=== PATIENT | male | born 1995 | race Asian ===

== ENCOUNTER 2024-07-15 15:52 | Inpatient (IN) | payer OTHER, SELFPAY ==
--- NOTE | 2024-07-15 | ECG_ITS ---
Test Reason : BASELINE Blood Pressure : */* mmHG Vent. Rate : 89 BPM Atrial Rate : 89 BPM P-R Int : 172 ms QRS Dur : 96 ms QT Int : 346 ms P-R-T Axes : 81 79 41 degrees QTcB Int : 420 ms Normal sinus rhythm Nonspecific ST and T wave abnormality Abnormal ECG No previous ECGs available Referred By: Everette Taveras Electronically Signed By: SONIA SINCLAIR
--- NOTE | ~2024-07-15 | CT_ITS ---
CLINICAL HISTORY: Subcutaneous air post injury Exam: CT of the left knee with intravenous contrast. Comparison: X-rays of the left knee from 07/15/2024. Findings: Redemonstration of the abnormal soft tissue gas predominately involving medial soft tissues, including proximal to the knee in the deep to multifocal hamstring musculature. Mild extravasation of the contrast is likely venous with contrast anterior to the upper portion of the popliteal vein. No defined arterial injury or definite arterial extravasation of the contrast. Fluid in the stranding is noted medial and posterior to the knee predominately proximal. Additional cellulitis centered inferiorly superficial to gastroc musculature. No displaced fracture. No dislocation. Small effusion present. Impression: 1. No acute fracture or dislocation. 2. Abnormal fluid and soft tissue gas is predominately medial, proximal, and dorsal to the knee. 3. Mild venous extravasation of the contrast. No arterial injury defined by [address] This document has been electronically signed by: Kavon Stein MD on 07/16/2024 01:50:44
--- NOTE | ~2024-07-15 | XR_ITS ---
EXAMINATION: XR KNEE, LEFT CLINICAL INFORMATION: wound, knee pain COMPARISON: None available. TECHNIQUE: Four views of the left knee. FINDINGS: No fracture, dislocation, or suspicious bone lesion. Normal alignment. Preserved joint spaces. No evidence of joint effusion. There are numerous foci of subcutaneous gas seen in the distal thigh both medially and posteriorly. No radiopaque foreign body evident. XR/XR knee LT 3V IMPRESSION: 1. No acute bony abnormalities. 2. Numerous foci of subcutaneous gas seen in the distal thigh both medially and posteriorly. Electronically signed by: Rajan Umana MD 07/15/2024 04:28 PM EDT
[2024-07-15 15:55] VITALS: BP 135/87; PULSE 90; RESP 16; TEMP 36.9; O2SAT 98; BMI 22.8
--- NOTE | 2024-07-15 16:00 | ED.LOWEXIN ---
HPI - Extremity Injury (Lower) General Chief Complaint: Extremity Injury, Lower Stated Complaint: Sent from primary for a CT scan Time Seen by Provider: 07/15/24 23:14 Source: patient Mode of arrival: ambulatory Limitations: no limitations History of Present Illness ED Provider: HPI Narrative: Patient apparently had a skiing injury 3 days ago tree branch went into the left medial aspect of the lower thigh patient's today noticed redness and pain x-ray was done which showed air under the skin spreading to the lower thigh patient denied any fever chills able to ambulate seen his PCP earlier today Related Data Previous Rx's ?Medication ?Instructions ?Recorded clindamycin HCl 300 mg capsule 300 mg PO Q6H #40 caps 07/16/24 Allergies Allergy/AdvReac Type Severity Reaction Status Date / Time No Known Allergies Allergy Verified 07/15/24 16:03 Review of Systems Review of Systems: Yes all other systems are reviewed and are negative [facility] Social History Social History Advance Directives: No Advance Directives Information Provided: No Do you have a plan to hurt others: No Plan Physical Exam Vital Signs: Vital Signs: Last Vital Signs Temp 98.0 F 07/16/24 05:38 Pulse 88 07/16/24 05:38 Resp 16 07/16/24 05:38 BP 117/78 07/16/24 05:38 Pulse Ox 99 07/16/24 05:38 O2 Del Method Room Air 07/16/24 05:38 BMI result Body Mass Index 22.8 Appearance: Alert. Oriented X3. No acute distress. Eyes: PERRLA, No Nystagmus ENT: Pharynx normal. Oral Mucosa moist Neck: Normal inspection. Neck supple. CVS: Normal heart rate and rhythm. Pulses normal. Respiratory: No respiratory distress. Equal air entry bilateral, no wheezing/rales/rhonchi Abdomen: Soft and nontender. Bowel sounds are present, no mass palpable, no CVA tenderness Skin: Skin warm and dry. Normal skin color. Normal skin turgor. Extremities: No lower extremity edema. No calf tenderness small wound on the medial aspect of the left knee with surrounding erythema no crepitation , knee joint with good range of movement no effusion Neuro: Oriented X 3. No motor deficit. No sensory deficit.No cerebellar signs , cranial nerves II-XII intact Course Course Course Narrative: This is an RME: Additional HPI, ROS, PE not included below will be deferred to primary provider. RME assessment and note performed by: Cheyenne Patricia PA-C This is a [id number]-male who presents to the ER with a complaint of left knee pain. Patient reports that he had a ski accident 3 days ago where a branch went into his left knee and caused him to have a wound. He went and had an x-ray performed which you can see the results below. Wound to left medial knee with mild surrounding erythema and warmth. Plan: Labs, x-ray, further ER evaluation needed. Medications Administered Generic Name Dose Route Start Last Admin Trade Name Freq PRN Reason Stop Dose Admin Clindamycin Phosphate 600 mg in 50 mls @ 100 mls/hr 07/16/24 03:00 07/16/24 04:09 Cleocin IV Infused Q6H ROMULO Infusion Discontinued Medications Generic Name Dose Route Start Last Admin Trade Name Freq PRN Reason Stop Dose Admin Bacitracin 1 appl 07/16/24 02:22 07/16/24 02:51 Bacitracin Oint 0.9 Gm Packet TOPICAL 07/16/24 02:23 1 appl ONCE ONE Administration Protocol Diphtheria/Tetanus/Acell Pertussis 0.5 ml 07/15/24 23:49 07/15/24 23:57 Diphth,Pertus(Acell),Tet Adult 0.5 Ml Syringe IM 07/15/24 23:50 0.5 ml .ONCE ONE Administration Piperacillin Sod/Tazobactam 50 mls @ 100 mls/hr 07/15/24 23:28 07/16/24 02:01 Sod 3.375 gm/ Sodium Chloride IV 07/15/24 23:57 Infused ONCE ONE Infusion Vancomycin HCl 1,500 mg/ 500 mls @ 333.333 mls/hr 07/16/24 03:15 07/16/24 04:14 Sodium Chloride IV 07/16/24 04:44 333.33 mls/hr ONCE ONE Administration Iohexol 85 ml 07/16/24 00:51 07/16/24 00:52 Iohexol 350 Mg/Ml 100 Ml Infus..Btl IV 07/16/24 00:52 85 ml ONCE ONE Administration Medical Decision Making Medical Decision Making [facility] Narrative: Patient punctured wound from the branch of the tree on 07/12 to the left lower thigh with air in his soft tissue patient did not take any antibiotics or paid any attention to the wound today noticed redness swelling and pain in that area x-ray and CT scan showed air in his subcutaneous tissue no signs of necrotizing fasciitis at this time will admit patient for IV antibiotics for infected puncture wound Differential Diagnosis Differential Diagnoses: The differential diagnosis associated with the presentation includes Infected wound/necrotizing fasciitis/compartment syndrome Admission/Observation Consideration of admission/observation: Escalation of care including admission/observation considered Consult Healthcare Provider Management of the patient was discussed with: Hospitalist Lab Data [facility] Lab Attestation statement: I reviewed the patient's lab results. 07/16/24 04:58 07/16/24 04:58 Labs: Lab Results 07/15/24 07/15/24 Range/Units 16:30 16:31 WBC 7.3 (4.8-10.8) X10*3/uL RBC 4.94 (4.60-5.80) X10*6/uL Hgb 14.2 (14.0-18.0) g/dl Hct 42.5 (42.0-52.0) % MCV 86.0 (80.0-98.0) fL MCH 28.7 (27.0-33.0) pg MCHC 33.4 (31.0-36.0) g/dl RDW 14.2 (11.0-16.0) % Plt Count 219 (160-400) X10*3/uL MPV 9.8 (9.4-12.4) fL Immature Gran % (Auto) 0.1 (0.0-0.4) % Neut % (Auto) 66.6 (45-73) % Lymph % (Auto) 21.5 (20-40) % Kay % (Auto) 9.7 (2-11) % Eos % (Auto) 1.6 (0-4) % Baso % (Auto) 0.5 (0-2) % Lymph # (Auto) 1.6 (1.2-4.9) X10*3/uL Kay # (Auto) 0.7 (0.1-1.2) X10*3/uL Eos # (Auto) 0.1 (0.0-0.4) X10*3/uL Baso # (Auto) 0.0 (0.0-0.2) X10*3/uL Abs Immat Gran (auto) 0.01 (0.00-0.03) X10*3/uL Absolute Neuts (auto) 4.9 (2.0-8.3) x10*3/uL Absolute Nucleated RBC 0.000 (0.0-0.012) X10*3/uL Nucleated RBC % (auto) 0.0 (0.0-0.2) /100WBC Smear Tech's Comments VERIFIED ESR 23 H (0-15) MM/HR Sodium 141 (135-145) mmol/L Potassium 3.9 (3.3-5.1) mmol/L Chloride 108 (96-108) mmol/L Carbon Dioxide 27 (22-29) mmol/L Anion Gap 10 L (12-20) BUN 19 H (9-16) mg/dL Creatinine 0.99 (0.5-1.4) mg/dL Estim Creat Clear Calc 99.3 Estimated GFR > 60 Random Glucose 92 (60-115) mg/dL Calcium 9.1 (8.4-10.2) mg/dL Total Bilirubin 1.3 H (0.0-1.0) mg/dL Direct Bilirubin 0.4 (0.0-0.5) mg/dL AST 17 (5-37) U/L ALT 14 (0-40) U/L Alkaline Phosphatase 54 (39-117) U/L Total Creatine Kinase 204 H (38-174) U/L C-Reactive Protein 5.36 H (< or = 0.50) mg/dL Total Protein 7.6 (6.5-8.0) g/dL Albumin 4.3 (3.5-5.0) g/dL Independent Interpretation I performed an independent interpretation of an: CT Scan Radiology Impression Discussion of test interpretation with radiology: I have reviewed the radiologist's reading. Radiologist Impression: [address] [address] [address] Scan Report Signed with Vu Patient: Vero Gilliland MR#: [id number] : 1995 Acct:[id number] Age/Sex: 28 / M ADM Date: 07/15/24 Loc: HO.ED Attending Dr: Ordering Physician: John Clemons MD Date of Service: 07/16/24 Procedure(s): CT knee LT w IV con Accession Number(s): [id number] cc: Janelle Taveras MD; John Clemons MD~ Report Number: [id number]: Total DLP = 223.00 mGy-cm ADDENDUMThis document has been electronically signed by: Kavon Stein MD on 07/16/2024 01:50:44 ADDENDUM: This report was discussed with John Clemons on Jul 16, 2024 01:54:00 EDT. This document has been electronically signed by: Taya Brothers on 07/16/2024 01:54:56 Addendum Dictated By: Kavon Stein MD Addendum Signed By: <Electronically signed by Kavon Stein MD in OV> 07/16/24155 Addendum Cosigned By: DD/ /10/149 TD/TT: 07/16/2406/10/153 CLINICAL HISTORY: Subcutaneous air post injury Exam: CT of the left knee with intravenous contrast. Comparison: X-rays of the left knee from 07/15/2024. Findings: Redemonstration of the abnormal soft tissue gas predominately involving medial soft tissues, including proximal to the knee in the deep to multifocal hamstring musculature. Mild extravasation of the contrast is likely venous with contrast anterior to the upper portion of the popliteal vein. No defined arterial injury or definite arterial extravasation of the contrast. Fluid in the stranding is noted medial and posterior to the knee predominately proximal. Additional cellulitis centered inferiorly superficial to gastroc musculature. No displaced fracture. No dislocation. Small effusion present. Impression: 1. No acute fracture or dislocation. 2. Abnormal fluid and soft tissue gas is predominately medial, proximal, and dorsal to the knee. 3. Mild venous extravasation of the contrast. No arterial injury defined by [address] This document has been electronically signed by: Kavon Stein MD on 07/16/2024 01:50:44 Discharge Plan Discharge Clinical Impression: Cellulitis, Contusion Patient Disposition: Admitted As Inpatient
[2024-07-15 16:43] LABS: Basophils Percent Auto 0.5 % (0-2); Eosinophils Absolute Auto 0.1 X10*3/uL (0.0-0.4); Eosinophils Percent Auto 1.6 % (0-4); Hematocrit 42.5 % (42.0-52.0); Hemoglobin 14.2 g/dl (14.0-18.0); Imm Gran Abs Auto 0.01 X10*3/uL (0.00-0.03); Imm Gran Pct Auto 0.1 % (0.0-0.4); Lymphocytes Absolute Auto 1.6 X10*3/uL (1.2-4.9); Lymphocytes Percent Auto 21.5 % (20-40); MANUAL DIFF FLAG SCAN; Mean Corpuscular HGB Conc 33.4 g/dl (31.0-36.0); Mean Corpuscular Hemoglobin 28.7 pg (27.0-33.0); Mean Platelet Volume 9.8 fL (9.4-12.4); Monocytes Absolute Auto 0.7 X10*3/uL (0.1-1.2); Monocytes Percent Auto 9.7 % (2-11); Neutrophils Absolute Auto 4.9 x10*3/uL (2.0-8.3); Neutrophils Percent Auto 66.6 % (45-73); PLT CLUMP 1; Red Blood Count 4.94 X10*6/uL (4.60-5.80); Red Cell Distribution Width 14.2 % (11.0-16.0); SCAN SMEAR FLAG 1
[2024-07-15 17:05] LABS: Alanine Aminotransferase 14 U/L (0-40); Albumin Level 4.3 g/dL (3.5-5.0); Alkaline Phosphatase 54 U/L (39-117); Anion Gap 10 (12-20); Aspartate Amino Transferase 17 U/L (5-37); Bilirubin Direct 0.4 mg/dL (0.0-0.5); Bilirubin Total 1.3 mg/dL (0.0-1.0); Blood Urea Nitrogen 19 mg/dL (9-16); C Reactive Protein 5.36 mg/dL (< or = 0.50); Calcium 9.1 mg/dL (8.4-10.2); Carbon Dioxide 27 mmol/L (22-29); Chloride 108 mmol/L (96-108); Creatinine Clr Calc Pharmacy 99.3; Estimated Glomerular Filt Rate > 60; Glucose Random 92 mg/dL (60-115); Potassium 3.9 mmol/L (3.3-5.1); Sodium 141 mmol/L (135-145); Total Protein 7.6 g/dL (6.5-8.0)
[2024-07-15 17:21] LABS: Erythrocyte Sedimentation Rate 23 MM/HR (0-15)
[2024-07-15 17:37] LABS: Platelet Count 219 X10*3/uL (160-400); SLIDE REVIEW VERIFIED; White Blood Count 7.3 X10*3/uL (4.8-10.8)
[2024-07-15 22:00] VITALS: BP 112/74; PULSE 77; RESP 16; TEMP 36.7; O2SAT 98
--- NOTE | 2024-07-15 22:03 | PC.NURSE ---
Pt is a pleasant 28 y/o male who presents to the ED for evaluation of a wound on the medial side of his left know that occured approx 3 days ago while skiing. Pt reports being tripped and fell, suffering a penetrating injury caused by a tree branch. Denies any fever and pt denies fast growth/worsening of affected area since onset. Was seen at PCPs office earlier to day and had an x-ray done, was referred here for further evaluation and CT scan to r/o necrcotizing fascitis. Pt asked to change into hospital attire.
--- OUTSIDE RECORDS SUMMARY | 2024-07-15 22:11 | XMS_ITS | Encounter Summary ---
Author Organization [facility] Address [address] [place] [address] Care Team Providers Care Director Marketing Analytics Name Role Phone Janelle Taveras MD Primary Care Provider Reason for Visit * Reason Comments Wound Assessment Left leg side not kn ee, fell while skiing x3 days Encounter Details Date Type Department Care Team (Late st Contact Info) Description 07/15/2024 11:30 AM EDT Office Visit Adult Medicine [facility] [address] [place] [address] Janelle Taveras MD [address] [place] [address] Wound of left lower extremity, initial encounter (Primary Dx); Erythema of skin; Acute pain of left knee Social History Tobacco Use Types Packs/Day Years Used Date Smoking Tobacco: Never Smokeless Tobacco: Never Tobacco Cessation:Counseling Given: Not Answered Alcohol Use Standard Drinks/Week Comments Yes 2 (1 standard drink = 0.6 oz pur e alcohol) Housing Instability Answer Date Recorde d Are you worried that in the next 2 months you may not have stable housing? Patient declined 07/14/2024 Food Access & Nutrition Answer Date Rec orded Do you have access to a vari ety of food including fruits and vegetables? Yes 07/14/2024 Access to Healthcare Answer Date Record ed Within the last 3 months, shayy briones many times did you visit the emergency department for your medical care? 0 07/14/2024 Financial Risk Answer Date Recorded How hard is it for you to pa y for the very basics like food, housing, medical care, and air conditioning / heating? Not very hard 07/14/2024 Food Risk Answer Date Recorded Within the past 12 months we worried whether our food would run out before we got money to buy more. Never true 07/14/2024 Within the past 12 months th e food we bought just didn't last and we didn't have money to get more. Never true 07/14/2024 Living Situation Answer Date Recorded What is your living situation? 0 07/14/2024 Sex and Gender Information Value Date Recorded Sex Assigned at Not on file Legal Sex Male 11:05 AM EDT Gender Identity Not on file Sexual Orientation Not on file documented as of this encounter Last Filed Vital Signs Vital Sign Reading Time Taken Comments Blood Pressure 120/76 07/15/2024 11:31 AM EDT Pulse 76 07/15/2024 11:31 AM EDT Temperature 36.9 ??C (98.4 ??F) 07/15/2024 11:31 AM E DT Respiratory Rate 16 07/15/2024 11:31 AM EDT Oxygen Saturation - - Inhaled Oxygen Concentration - - Weight 67.1 kg (148 lb) 07/15/2024 11:31 AM EDT Height 170.2 cm (5' 7 ) 07/15/2024 11:31 AM EDT Body Mass Index 23.18 07/15/2024 11:31 AM EDT documented in this encounter Patient Instructions * Attachments The following attachments cannot be sent through Care Everywhere. * Diet: DASH (Luxembourger) documented in this encounter Progress Notes * Janelle Taveras MD - 07/15/2024 11:30 AM EDT CHIEF COMPLAINT: Wound Assessment (Left leg side not knee, fell while skiing x3 days ) IDENTIFIER: Vero Gilliland is a 28 y.o. old male. HPI: History of Present Illness The patient presents for evaluation of a wound on his left leg. He sustained the wound on 07/12/2024, following a ski accident at [place] where he fell and was impaled by a tree branch. The wound is located on the inner aspect of his left leg, just below the knee. He reports no other injuries prior to the incident. The wound was actively bleeding on the day of the incident but ceased the following day. He reports no fever, chills, or purulent discharge from the wound. He has not had an x-ray of the left knee. He experiences pain in his left knee during ambulation, particularly when bending the knee excessively, which also limits his range of motion.He does not require any assistive devices for mobility. He continues to work onsite and reports no i mpact on his ability to drive. He attributes his difficulty in walking to muscle stretching rather than knee pain. He has been managing the wound with daily applications of an bxtv-euz-njxtvrg topical antibiotic ointment and nonadherent pads. He cleaned the wound with water and applied an antibiotic ointment. He has been engaging in outdoor activities and has made dietary modifications, including increased meat consumption to achieve his protein intake goal. He consumes red meat biweekly and incorporates green leafy vegetables into his diet, with a particular emphasis on broccoli. His carbohydrate intake is limited to less than 50 grams per day. He occasionally engages in hiking and reports no shortness of breath or chest pain. SOCIAL HISTORY He works onsite. IMMUNIZATIONS He is up to date with all his vaccines, including tetanus. ROS: The remainder of review of systems is noncontributory. PAST MEDICAL HISTORY: There are no active problems to display for this patient. SOCIAL HISTORY: Social History Tobacco Use Smoking status: Never Smokeless tobacco: Never Substance Use Topics Alcohol use: Yes Alcohol/week: 2.0 standard drinks of alcohol FAMILY HISTORY: No family status information on file. No family history on file. ACTIVE MEDICATIONS: No outpatient medications have been marked as taking for the 07/15/24 encounter (Office Visit) with Janelle Taveras MD. ALLERGIES: Patient has no known allergies. PHYSICAL EXAM: Blood pressure 120/76, pulse 76, temperature 36.9 ??C (98.4 ??F), resp. rate 16, height 1.702 m (67 ), weight 67.1 kg (148 lb). Body mass index is 23.18 kg/m??. BMI is greater than 25.0 (above the normal range) - see Plan Physical Exam General Appearance: Normal. Vital signs: Within normal limits. Respiratory: Lungs are clear. Cardiovascular: Heart sounds are normal. Back, Musculoskeletal: The area around the left thigh and left knee does not appear tense. No pus or active bleeding noted. There was dried blood at wound of left lower extremity just below left knee Extremities: There is a bit of redness on the left thigh compared to the right side. Skin: Warm and dry, no rash. Neurological: Normal. LABS: Results Laboratory Studies Low white cell count in April 2024. Liver enzyme abnormality in April 2024. IMPRESSION: 1. Erythema of skin 2. Wound of left lower extremity, initial encounter 3. Acute pain of left knee PLAN: No orders of the defined types were placed in this encounter. Assessment & Plan 1. Wound on the left leg. The wound is located just below the left knee and was caused by a ski accident involving a tree branch on 07/12/2024. There is no pus, fever, or chills, and the wound appears to be improving. Blood pressure and heart rate are normal. Respiratory function is normal. There are no signs of sepsis. There is a little bit of tenderness when pressed around the wound just below the left knee. He is advised to continue using nonadherent wound dressings and apply an ozro-wvw-osjyrau topical antibiotic ointment twice daily. The wound should be exposed to air when at home and covered when outside. He should monitor his temperature regularly and seek reevaluation if it exceeds 100.4??F. A complete bloodcount will be conducted to rule out any active infection. An x-ray of the left knee will be ordered. If there are any indications of infection, oral antibiotics will be considered. 2. Health maintenance. Pending blood work will be completed, including a recheck of liver enzymes and cholesterol levels. ADDITIONAL ORDERS: None Janelle Taveras MD on 07/15/2024 at 12:14 PM EDT I have obtained verbal consent from Vero Gilliland prior to the recording. I have advised Vero Gilliland that he may refuse the recording and require the recording to be turned off at any time during this encounter. documented in this encounter Plan of Treatment Upcoming Encounters Date Type Department Care Team (Late st Contact Info) Description 05/14/2025 1:30 PM EST Office Visit Adult [facility] [address] [place] [address] Janelle Taveras MD [address] [place] [address] documented as of this encounter Visit Diagnoses Diagnosis Wound of left lower extremity, initial encounter- Primary Erythema of skin Acute pain of left knee documented in this encounter Additional Health Concerns Assessment Noted Time PHQ-9 Depression Total Score: 0 05/13/19 25 2:49 PM EST documented as of this encounter Care Teams Director Marketing Analytics Relationship Specialty Start Date End Date Janelle Taveras MD [address] [place] [address] PCP - General 12/12/22 documented as of this encounter
--- OUTSIDE RECORDS SUMMARY | 2024-07-15 22:11 | XMS_ITS | Encounter Summary ---
Author Organization [facility] Address [address] [place] [address] Care Team Providers Care Carton Filling Machine Operator Name Role Phone Janelle Taveras MD Primary Care Provider Encounter Details Date Type Department Care Team (Latest Contact Info) Description 07/15/2024 12:04 PM EDT Hospital Encounter [facility] [place] [address] [place] [address] Wound of left lower extremity, initial encounter; Acute pain of left knee Social History Tobacco Use Types Packs/Day Years Used Date Smoking Tobacco: Never Smokeless Tobacco: Never Alcohol Use Standard Drinks/Week Comments Yes 2 [...] on file documented as of this encounter Plan of Treatment Upcoming Encounters Date Type Department Care Team (Late st Contact Info) Description 05/14/2025 1:30 PM EST Office Visit Adult Medicine [facility] [place] [address] [place] [address] Janelle Taveras MD [address] [place] [address] documented as of this encounter Procedures Procedure Name Priority Date/Time Associated Diagnosis Comments XR KNEE 4+ VIEWS LEFT Routine 07/15/2024 12:25 PM EDT Wound of left lower extremity, initial encounter Acute pain of left knee documented in this encounter Results * XR Knee 4+ Views Left (07/15/2024 12:25 PM EDT) Anatomical Region Laterality Modality Lower Extremities, Knee Left [facility] 07/15/2024 2:23 PM EDT Impressions 07/15/2024 2:43 PM EDT 1. ??No acute fracture or dislocation. 2. ??Soft tissue abnormalities with multiple lucencies may be related to trauma, but superimposed infectious process not excluded. ??A CT of the left lower extremity is recommended for further evaluation and exclude necrotizing fasciitis. Abnormal findings regarding the soft tissues discussed with Dr. Taveras at approximately 2:40 PM. ??Dr. Taveras will contact the patient immediately. -------- FINAL REPORT -------- Dictated By: Cheryl Hooks Dictated Date: 07/15/2024 14:23 ET Assigned Physician: Cheryl Hooks Reviewed and Electronically Signed By: Cheryl Hooks Signed Date: 07/15/2024 14:43 ET Workstation ID: [id number] Transcribed By: Self Edit Transcribed Date: 07/15/2024 14:35 ET Narrative 07/15/2024 2:43 PM EDT XR KNEE 4+ VIEWS LEFT Reason: wound left knee pain, left knee pain afte skii injury Comparison: None FINDINGS: No acute fracture. ??Normal alignment. ??Normal joint spaces. ??No suprapatellar joint effusion. ??There is soft tissue swelling associated with multiple lucencies in the soft tissues of the posteromedial aspect of the upper knee. ??No radiopaque foreign body. Procedure Note Cheryl Hooks MD - 07/15/2024 XR KNEE 4+ VIEWS LEFT Reason: wound left knee pain, left knee pain afte skii injury Comparison: None FINDINGS: No acute fracture. Normal alignment. Normal joint spaces. Nosuprapatellar joint effusion. There is soft tissue swelling associatedwith multiple lucencies in the soft tissues of the posteromedial aspect ofthe upper knee. No radiopaque foreign body. IMPRESSION: 1. No acute fracture or dislocation. 2. Soft tissue abnormalities with multiple lucencies may be related totrauma, but superimposed infectious process not excluded. A CT of theleft lower extremity is recommended for further evaluation and excludenecrotizing fasciitis. Abnormal findings regarding the soft tissues discussed with Dr. Taveras atanamrataroximately 2:[address] Taveras will contact the patient immediately. -------- FINAL REPORT -------- Dictated By: Cheryl Hooks Dictated Date: 07/15/2024 14:23 ET Assigned Physician: Cheryl Hooks Reviewed and Electronically Signed By: Cheryl Hooks Signed Date: 07/15/2024 14:43 ET Workstation ID: [id number] Transcribed By: Self Edit Transcribed Date: 07/15/2024 14:35 ET us Janelle Taveras MD IMG XR PROCEDURES Final Res ult documented in this encounter Visit Diagnoses Diagnosis Wound of left lower extremity, initial encounter Acute pain of left knee documented in this encounter Additional Health Concerns Assessment Noted Time PHQ-9 Depression Total Score: 0 05/13/19 25 2:49 PM EST documented as of this encounter Care Teams Carton Filling Machine Operator Relationship Specialty Start Date End Date Janelle Taveras MD [address] [facility] [place] [address] PCP - General 12/12/22 documented as of this encounter
--- OUTSIDE RECORDS SUMMARY | 2024-07-15 22:11 | XMS_ITS | Encounter Summary ---
Author Organization [facility] Address [address] [place] [address] Care Team Providers Care Senior Revenue Accountant Name Role Phone Janelle Taveras MD Primary Care Provider Encounter Details Date Type Department Care Team ([facility] st Contact Info) Description 07/15/2024 Telephone Adult Medicine [facility] [address] [place] [phone] Janelle Taveras MD [address] [place], [place] [id number] Social History Tobacco Use Types Packs/Day Years [...] Record ed Within the last 3 months, ho w many times did you visit the emergency [...] on file documented as of this encounter Progress Notes * Janelle Taveras MD - 07/15/2024 2:51 PM EDT Patient was notified of findings of x-ray of left knee Patient will be going to the ER JOSSIE documented in this encounter Plan of Treatment Upcoming Encounters Date Type Department Care Team (Late st Contact Info) Description 05/14/2025 1:30 PM EST Office Visit Adult Medicine [facility] [address] [facility] [place] [address] Janelle Taveras MD [address] [facility] [place] [address] documented as of this encounter Visit Diagnoses Not on filedocumented in this encounter Additional Health Concerns Assessment Noted Time PHQ-9 Depression Total Score: 0 05/13/19 25 2:49 PM EST documented as of this encounter Care Teams Senior Revenue Accountant Relationship Specialty Start Date End Date Janelle Taveras MD [address] [facility] [place] [address] PCP - General 12/12/22 documented as of this encounter
--- OUTSIDE RECORDS SUMMARY | 2024-07-15 22:11 | XMS_ITS | Clinical Summary ---
Author Organization [facility] [address] [place] [address] [place] [address] Phone Care Team Providers Care Building Services Supervisor Name Role Phone Janelle Taveras MD Primary Care Provider Allergies No known active allergies Medications No known medications Encounters Date Type Department Care Team Description 07/15/2024 12:04 PM EDT Hospital Encounter [address] [phone] Wound of left lower extremity, initial encounter; Acute pain of left knee 07/15/2024 11:30 AM EDT Office Visit Adult [address] [phone] Janelle Taveras MD Wound of left lower extremity, initial encounter (Primary Dx); Erythema of skin; Acute pain of left knee 07/15/2024 Telephone Adult Medicine [address] [phone] Janelle Taveras MD 05/14/2024 11:00 AM EST Office Visit Adult [address] [phone] Janelle Taveras MD Annual physical exam (Primary Dx) from Last 3 Months Immunizations Name Administration Dates Next Due Influenza trivalent, MDCK, 0 .5mL, preservative free (Flucelvax) 6mo and older 05/14/2024 Social History Tobacco Use Types Packs/Day Years [...] on file Sexual Orientation Not on file Obstetrics History Last Filed Vital Signs Vital Sign Reading [...] Mass Index 23.18 07/15/2024 11:31 AM EDT Plan of Treatment Upcoming Encounters Date Type Department Care Team (Late st Contact Info) Description 05/14/2025 1:30 PM EST Office Visit Adult Medicine [address] [phone] Janelle Taveras MD [address] [facility] [place] [address] Health Maintenance Due Date Last Done Comments COVID-19 Vaccine (1 - 2023-2 5 season) 2025 Postponed from 12/15 (Patient Refused) DTaP,Tdap,and Td Vaccines (1 - Tdap) 04/16/2025 Postponed from 12/16 (Patient Refused) Hepatitis B Vaccines (1 of 3 - 19+ 3-dose series) 04/16/2025 Postponed from 05/2013 (Patient Refused) Depression Screening 05/13/2025 05/13/2024 Social Influencers of Health Screening 07/14/2025 07/14/2024, 05/14/2024 Cholesterol Screening (Lipid Panel) 05/14/2029 05/14/2024 HIV Screening Completed 05/14/2024 Hepatitis C Screening Completed 05/14/2024 Influenza Vaccine Completed 05/14/2024 HIB Vaccines Aged Out No longer eligi ble based on patient's age to complete this topic HPV Vaccines Aged Out No longer eligi ble based on patient's age to complete this topic Hepatitis A Vaccines Aged Out No long er eligible based on patient's age to complete this topic IPV Vaccines Aged Out No longer eligi ble based on patient's age to complete this topic MMR Vaccines Aged Out No longer eligi ble based on patient's age to complete this topic Meningococcal ACWY Vaccine Aged Out N o longer eligible based on patient's age to complete this topic Meningococcal B Vacine Aged Out No lo nger eligible based on patient's age to complete this topic Pneumococcal Vaccine: Pediatrics (0 to 5 Years) and At-Risk Patients (6 to 64 Years) Aged Out No longer eligible b ased on patient's age to complete this topic RSV Immunization Patients Under 20 months Aged Out No longer eligible b ased on patient's age to complete this topic Varicella Vaccines Aged Out No longer eligible based on patient's age to complete this topic Procedures Procedure Name Priority Date/Time Associated Diagnosis Comments XR KNEE 4+ VIEWS LEFT Routine 07/15/2024 12:25 PM EDT Wound of left lower extremity, initial encounter Acute pain of left knee CBC WITH AUTO DIFFERENTIAL Routine 05/14/2024 11:29 AM EST Annual physical exam CBC AND DIFFERENTIAL Routine 05/14/2024 11:29 AM EST Annual physical exam COMPREHENSIVE METABOLIC PANEL Routine 05/14/2024 11:29 AM EST Annual physical exam LIPID PANEL WITH REFLEX TO DIRECT LDL Routine 05/14/2024 11:29 AM EST Annual physical exam THYROID STIMULATING HORMONE WITH REFLEX TO FREE T4 AND FREE T3 Routine 05/14/2024 11:29 AM EST Annual physical exam HEMOGLOBIN A1C Routine 05/14/2024 11:29 AM EST Annual physical exam TREPONEMA PALLIDUM ANTIBODY WITH REFLEX TO RPR AND PARTICLE AGGLUTINATION Routine 05/14/2024 11:29 AM EST Annual physical exam HIV 1, 2 ANTIBODY, P24 ANTIGEN WITH REFLEX TO DIFFERENTIATION Routine 05/14/2024 11:29 AM EST Annual physical exam HEPATITIS PANEL, ACUTE WITH REFLEX TO CONFIRMATION Routine 05/14/2024 11:29 AM EST Annual physical exam CHLAMYDIA TRACHOMATIS AND NEISSERIA GONORRHOEAE PCR Routine 05/14/2024 11:29 AM EST Annual physical exam HERPES SIMPLEX VIRUS 1 AND 2 PCR, QUALITATIVE Routine 05/14/2024 11:29 AM EST Annual physical exam from Last 3 Months Results * XR Knee 4+ Views Left (07/15/2024 12:25 PM EDT) Anatomical Region Laterality Modality Lower Extremities, Knee Left [facility] 07/15/2024 2:23 PM EDT Impressions 07/15/2024 [...] Signed Date: 07/15/2024 14:43 ET Workstation ID: [id number] Transcribed By: Self Edit Transcribed Date: 07/15/2024 [...] the soft tissues discussed with Dr. Taveras atanamrataroxstaciately 2:[address] Taveras will contact the patient immediately. -------- FINAL REPORT -------- Dictated By: Cheryl Hooks Dictated Date: 07/15/2024 14:23 ET Assigned Physician: Cheryl Hooks Reviewed and Electronically Signed By: Cheryl Hooks Signed Date: 07/15/2024 14:43 ET Workstation ID: [id number] Transcribed By: Self Edit Transcribed Date: 07/15/2024 14:35 ET Janelle Taveras MD IMG XR PROCEDURES Final Res ult * HIV 1,2 antibody, p24 antigen with reflex to differentiation (05/14/2024 11:29 AM EST) HIV Combo AB/AG Negative Negative LAB CHEMISTRY METHOD 05/14/2024 3:26 PM EST [facility] Blood Venous blood specimen / Unknown Venipuncture / Unknown 05/14/2024 11:29 AM EST 05/14/2024 11:29 AM EST Narrative [facility] - 05/14/2024 3:26 PM EST This assay is a 4th generation assay allowing for earlier detection of HIV infection by detecting the presence of the HIV-1 p24 antigen as well as the traditional antibodies to HIV type 1 (including group O) and type 2. ??Use of a 4th generation assay is the current CDC recommendation for HIV screening. us Janelle Taveras MD LAB BLOOD ORDERABLES Final Result [facility] [address] [place] [address], [place] [phone] * Treponema pallidum antibody with reflex to RPR and particle agglutination (05/14/2024 11:29 AM EST) T. Pallidum Antibodies Negative Negative LAB CHEMISTRY METHOD 05/14/2024 2:58 PM EST [facility] Blood Venous blood specimen / Unknown Venipuncture / Unknown 05/14/2024 11:29 AM EST 05/14/2024 11:29 AM EST Janelle Taveras MD LAB BLOOD ORDERABLES Final Result Performing Organization Address [facility]/ZIP Co de Phone Number [facility] [address] [place] [address], * Thyroid stimulating hormone with reflex to free t4 and free t3 (05/14/2024 11:29 AM EST) Pathologist [facility] TSH 3.06 0.40 - 4.00 mcIU/mL LAB CHEMISTRY METHOD 05/14/2024 2:47 PM [facility] Blood Venous blood specimen / Unknown Venipuncture / Unknown 05/14/2024 11:29 AM EST 05/14/2024 11:29 AM EST [facility] Alexis Taveras MD LAB BLOOD ORDERABLES Final Result Performing Organization Address [facility] Co de Phone Number [facility] [address] [place] [address], [place] [phone] * (ABNORMAL) Lipid panel with reflex to direct LDL (05/14/2024 11:29 AM EST) Cholesterol 220(H) 0 - 200 mg/dL LAB CHEMISTRY METHOD 05/14/2024 2:41 PM [facility] Triglycerides 59 0 - 150 mg/dL LAB CHEMISTRY METHOD 05/14/2024 2:41 PM [facility] HDL 69 >=40 mg/dL LAB CHEMISTRY METHOD 05/14/2024 2:41 PM [facility] LDL Calculated 139(H) 0 - 100 mg/dL LAB CHEMISTRY METHOD 05/14/2024 2:41 PM [facility] VLDL Cholesterol Jorge 11.8 mg/dL LAB CHEMISTRY METHOD 05/14/2024 2:41 PM [facility] Non HDL Chol. (LDL+VLDL) 151(H) <145 mg/dL LAB CHEMISTRY METHOD 05/14/2024 2:41 PM [facility] Chol/HDL Ratio 3.2 0.0 - 4.4 LAB CHEMISTRY METHOD 05/14/2024 2:41 PM EST [facility] Blood Venous blood specimen / Unknown Venipuncture / Unknown 05/14/2024 11:29 AM EST 05/14/2024 11:29 AM EST Janelle Taveras MD LAB BLOOD ORDERABLES Final Result [facility] [address] [place] [address], [place] [phone] * Hepatitis panel, acute with reflex to confirmation (05/14/2024 11:29 AM EST) Hepatitis B Surface Ag Negative Negative LAB CHEMISTRY METHOD 05/14/2024 3:34 PM EST [facility] Hepatitis A Antibody IgM Negative Negative LAB CHEMISTRY METHOD 05/14/2024 3:34 PM EST [facility] Hep B Core IgM Negative Negative LAB CHEMISTRY METHOD 05/14/2024 3:34 PM EST [facility] Hepatitis C Antibody Negative Negative LAB CHEMISTRY METHOD 05/14/2024 3:34 PM EST [facility] Blood Venous blood specimen / Unknown Venipuncture / Unknown 05/14/2024 11:29 AM EST 05/14/2024 11:29 AM EST us Janelle Taveras MD LAB BLOOD ORDERABLES Final Result [facility] [address] [place] [address], [place] [phone] * Herpes simplex virus 1 and 2 molecular study, qualitative (05/14/2024 11:29 AM EST) Specimen Source Blood - EDTA 05/17/2024 2:04 PM EST [facility] Herpes simplex Virus I Not detected Not detected 05/17/2024 2:04 PM EST [facility] Herpes simplex Virus II Not detected Not detected 05/17/2024 2:04 PM EST [facility] Comment: This test utilizes a real-time polymerase chain reaction procedure to amplify and detect portions of the herpes simplex virus glycoprotein G genes. ??The analytical sensitivity of this assay is 50 copies/mL. A Not detected result does not rule out infection. This test uses commercial reagents that have not been approved or cleared by the FDA. ??The FDA has determined that such clearance or approval is not necessary. ??The performance characteristics of this procedure were determined by [facility]. This test is performed pursuant to a license agreement with Over [employer] Fem[employer] Test performed at [facility], [address] , [place], [place] ??[address] ? [phone] Hina Ortiz MD, PhD - Audio Engineer Blood Venous blood specimen / Unknown Venipuncture / Unknown 05/14/2024 11:29 AM EST 05/14/2024 11:29 AM EST Janelle Taveras MD LAB MICROBIOLOGY - GENERAL ORDERABLES Final Result [facility] [address] [place] [address] * (ABNORMAL) CBC auto differential (05/14/2024 11:29 AM EST) WBC 4.7(L) 4.8 - 10.8 K/mcL LAB HEMETOLOGY METHOD 05/14/2024 2:00 PM [facility] RBC 5.10 4.50 - 5.50 M/mcL LAB HEMETOLOGY METHOD 05/14/2024 2:00 PM [facility] Hemoglobin 14.5 13.5 - 17.5 g/dL LAB HEMETOLOGY METHOD 05/14/2024 2:00 PM [facility] Hematocrit 45.8 42.0 - 54.0 % LAB HEMETOLOGY METHOD 05/14/2024 2:00 PM [facility] MCV 89.5 79.0 - 98.0 FL LAB HEMETOLOGY METHOD 05/14/2024 2:00 PM [facility] MCH 28.3 27.0 - 32.0 pcg LAB HEMETOLOGY METHOD 05/14/2024 2:00 PM [facility] MCHC 31.7(L) 32.0 - 37.0 g/dL LAB HEMETOLOGY METHOD 05/14/2024 2:00 PM [facility] RDW 13.9 11.0 - 15.0 % LAB HEMETOLOGY METHOD 05/14/2024 2:00 PM [facility] Platelets 258 130 - 400 K/mcL LAB HEMETOLOGY METHOD 05/14/2024 2:00 PM [facility] MPV 10.4 7.0 - 11.0 FL LAB HEMETOLOGY METHOD 05/14/2024 2:00 PM [facility] NRBC 0.0 <1.0 % LAB HEMETOLOGY METHOD 05/14/2024 2:00 PM [facility] NRBC Absolute 0.00 <0.10 K/mcL LAB HEMETOLOGY METHOD 05/14/2024 2:00 PM [facility] Neutrophils Relative 56.9 % LAB HEMETOLOGY METHOD 05/14/2024 2:00 PM [facility] Lymphocytes Relative 31.7 % LAB HEMETOLOGY METHOD 05/14/2024 2:00 PM [facility] Monocytes Relative 7.6 % LAB HEMETOLOGY METHOD 05/14/2024 2:00 PM [facility] Eosinophils Relative 3.0 % LAB HEMETOLOGY METHOD 05/14/2024 2:00 PM [facility] Basophils Relative 0.8 % LAB HEMETOLOGY METHOD 05/14/2024 2:00 PM [facility] Immature Granulocytes Relative 0.0 % LAB HEMETOLOGY METHOD 05/14/2024 2:00 PM EST [facility] Neutrophils Absolute 2.69 1.50 - 7.00 K/mcL LAB HEMETOLOGY METHOD 05/14/2024 2:00 PM EST [facility] Lymphocytes Absolute 1.50 1.00 - 5.00 K/mcL LAB HEMETOLOGY METHOD 05/14/2024 2:00 PM EST [facility] Monocytes Absolute 0.36 0.20 - 1.00 K/mcL LAB HEMETOLOGY METHOD 05/14/2024 2:00 PM EST [facility] Eosinophils Absolute 0.14 0.00 - 0.50 K/mcL LAB HEMETOLOGY METHOD 05/14/2024 2:00 PM [facility] Basophils Absolute 0.04 0.00 - 0.20 K/mcL LAB HEMETOLOGY METHOD 05/14/2024 2:00 PM EST [facility] Immature Granulocytes Absolute 0.00 0.00 - 0.03 K/mcL LAB HEMETOLOGY METHOD 05/14/2024 2:00 PM EST [facility] Blood Venous blood specimen / Unknown Venipuncture / Unknown 05/14/2024 11:29 AM EST 05/14/2024 11:29 AM EST us Janelle Taveras MD LAB BLOOD ORDERABLES Final Result [facility] [address] [place] [address], * Chlamydia trachomatis and Neisseria gonorrhoeae molecular study (05/14/2024 11:29 AM EST) Neisseria gonorrhoeae PCR Negative Negative LAB MOLECULAR DIAGNOSTICS METHOD 05/15/2024 9:14 AM EST [facility] Chlamydia trachomatis PCR Negative Negative LAB MOLECULAR DIAGNOSTICS METHOD 05/15/2024 9:14 AM EST [facility] Swab Urine specimen obtained by clean catch procedure / Unknown Non-blood Collection / Unknown 05/14/2024 11:29 AM EST 05/14/2024 11:29 AM EST Janelle Taveras MD LAB MICROBIOLOGY - GENERAL ORDERABLES Final Result Performing Organization Address [facility]/ZIP Co de Phone Number [facility] [address] [place] [address], [place] [phone] * Hemoglobin A1c (05/14/2024 11:29 AM EST) Pathologist [facility] Hemoglobin A1C 5.3 <6.5 % LAB CHEMISTRY METHOD 05/14/2024 8:24 PM EST [facility] Mean Bld Glu Estim. 105 mg/dL LAB CHEMISTRY METHOD 05/14/2024 8:24 PM [facility] Blood Venous blood specimen / Unknown Venipuncture / Unknown 05/14/2024 11:29 AM EST 05/14/2024 11:29 AM EST Janelle Taveras MD LAB BLOOD ORDERABLES Final Result Performing Organization Address [facility]/ZIP Co de Phone Number [facility] [address] [place] [address], [place] [phone] * (ABNORMAL) Comprehensive metabolic panel (05/14/2024 11:29 AM EST) Pathologist [facility] Sodium 137 133 - 145 mmol/L LAB CHEMISTRY METHOD 05/14/2024 3:36 PM [facility] Potassium 3.8 3.5 - 5.5 mmol/L LAB CHEMISTRY METHOD 05/14/2024 3:36 PM EST [facility] Chloride 106 96 - 110 mmol/L LAB CHEMISTRY METHOD 05/14/2024 3:36 PM EST [facility] CO2 27 21 - 32 mmol/L LAB CHEMISTRY METHOD 05/14/2024 3:36 PM EST [facility] Anion Gap 4 3 - 11 LAB CHEMISTRY METHOD 05/14/2024 3:36 PM [facility] Glucose 88 70 - 100 mg/dL LAB CHEMISTRY METHOD 05/14/2024 3:36 PM [facility] BUN 13 5 - 25 mg/dL LAB CHEMISTRY METHOD 05/14/2024 3:36 PM [facility] Creatinine 0.83 0.70 - 1.30 mg/dL LAB CHEMISTRY METHOD 05/14/2024 3:36 PM [facility] eGFR 122 >=60 mL/min/1. 73m2 LAB CHEMISTRY METHOD 05/14/2024 3:36 PM [facility] Comment:Calculation based on the??Chronic Kidney Disease Epidemiology Collaboration (CKD-EPI) equation refit??without adjustment for race. BUN/Creatinine Ratio 15.7 LAB CHEMISTRY METHOD 05/14/2024 3:36 PM [facility] Calcium 9.2 8.5 - 10.5 mg/dL LAB CHEMISTRY METHOD 05/14/2024 3:36 PM [facility] AST (SGOT) 186(H) 10 - 42 unit/L LAB CHEMISTRY METHOD 05/14/2024 3:36 PM [facility] Comment:Results verified by repeat testing ALT (SGPT) 64(H) 10 - 60 unit/L LAB CHEMISTRY METHOD 05/14/2024 3:36 PM [facility] Alkaline Phosphatase 62 42 - 121 unit/L LAB CHEMISTRY METHOD 05/14/2024 3:36 PM [facility] Total Protein 7.4 6.0 - 8.0 g/dL LAB CHEMISTRY METHOD 05/14/2024 3:36 PM [facility] Albumin 4.4 3.2 - 5.0 g/dL LAB CHEMISTRY METHOD 05/14/2024 3:36 PM [facility] Total Bilirubin 1.5(H) 0.0 - 1.4 mg/dL LAB CHEMISTRY METHOD 05/14/2024 3:36 PM EST [facility] Blood Venous blood specimen / Unknown Venipuncture / Unknown 05/14/2024 11:29 AM EST 05/14/2024 11:29 AM EST Janelle Taveras MD LAB BLOOD ORDERABLES Final Result [facility] [address] [place] [address], from Last 3 Months Insurance [facility] Care Teams Building Services Supervisor Relationship Specialty Start Date End Date Janelle Taveras MD [address] [place] [address] PCP - General 12/12/22
--- NOTE | 2024-07-15 23:01 | PC.NURSE ---
redness on left lateral leg outlined with surgical marker- area is warm to the touch, (+) CSM
[2024-07-15] MEDS: Piperacillin Sodium/Tazobactam 3.375 GM in 0.9 % Sodium Chloride 50 ML IV (23:57)
[2024-07-15] MEDS: Diphth,Pertus(ACell),Tet Adult 0.5 ML SYRINGE IM (23:57)
[2024-07-16] MEDS: iohexoL 350 MG/ML 100 ML INFUS..BTL 85 ML IV (00:52)
[2024-07-16] MEDS: Bacitracin Oint 0.9 GM PACKET 1 APPL TOPICAL (02:51)
--- NOTE | 2024-07-16 02:58 | MHC.EDTECH ---
wound cleaned,dressing applied.
--- NOTE | 2024-07-16 03:06 | P.HPHOSP_ITS ---
History of Present Illness Date of Service: 07/16/24 Attending physician on admission: Koby Xiao Chief Complaint: Left knee trauma, left knee pain Patient is a 28-year-old male with no significant past medical history uses creatine for weightlifting presents to the emergency department after seeing his primary care on SundayJuly 15 status post a skiing injury that took place on SundayJuly 12 [place] a [place] in [place]. Patient states he was on his last ski run for the day and was skiing with his friends in an area full of trees and branches. Patient had tripped over 1 of the branches and somehow as the branch broke, the sharp end went through patient's left knee medially. Patient fell to the ground, did not hit the head and experienced inability to move the left leg for about 5 seconds. Patient had significant pain. Patient felt oozing down his left leg as well. Patient did pull out the branch almost immediately and the oozing increased. Patient's friends realized the patient was no longer with them and returned back to the scene. Patient was alert and orientated, did not experience any loss of consciousness or excessive bleeding. Patient states he was able to make it back to the [place] resort entrance by not using the left leg and relied on the right leg to [place] back to the base. Patient then returned to their [employer]nb. Patient's friend provided topical antibiotic ointment. Patient initially cleanse the site with tap water and then applied the antibiotic ointment and covered with a sterile pad. Patient denied any rash, chills, fever, nausea, vomiting status post the injury. Patient then traveled home that evening and elevated the left leg. Pain in left leg worsened on Sunday but patient decided against seeking treatment as the pain slowly improved. Sunday was relatively the same. Patient did note some redness around the effected area. Pain was actually improving but still present. Patient was not able to bear weight completely on the left leg. Patient had called his primary care physician and got an appointment for SundayJuly 15 and was seen. Patient was advised to seek intervention in the local emergency department and arrived at [facility]. Pt was able to drive himself to the ED. Patient diagnosed with cellulitis which was marked with a surgical pen for areas both above and below left knee. . Knee was warm to the touch. Patient had limited range of motion mostly with flexion. Pain was reported a 3/10 with movement only otherwise patient had no pain at rest. CT scan was completed: Impression: 1. No acute fracture or dislocation. 2. Abnormal fluid and soft tissue gas is predominately medial, proximal, and dorsal to the knee. 3. Mild venous extravasation of the contrast. No arterial injury defined by [address] Also x-ray of the left knee noted: FINDINGS: No fracture, dislocation, or suspicious bone lesion. Normal alignment. Preserved joint spaces. No evidence of joint effusion. There are numerous foci of subcutaneous gas seen in the distal thigh both medially and posteriorly. No radiopaque foreign body evident. Due to the presence of gas medially, proximal and dorsal to L knee, patient required admission and was started on vancomycin IV, Zosyn IV and clindamycin IV. Infectious Disease and General surgery have been consulted. Patient continues to deny pain at rest in the affected knee. Patient did receive a tetanus shot in the emergency department. Patient is tolerating antibiotics so far without any adverse or allergic response. Patient did not initially comprehend the severity of the puncture wound. Patient educated on the risk for necrotizing fasciitis or worsening internal infection and needs to be on broad-spectrum IV antibiotics with consultation for surgery and Infectious Disease prior to being discharged. Patient is concerned about missing work and is questioning how long he will remain in the hospital. Review of Systems 2 Review of Systems: Patient currently denies any chest pain, shortness of breath at rest, and abdominal pain, nausea, vomiting. Patient reports pain in the left knee only with movement but denies pain at rest. Patient denies any fever, chills but states the room he is staying in his cold and is requesting additional blankets. Yes all other systems are reviewed and are negative [facility] Cognitive capacity: Alert and orientated x3. Social History Advance Directives: No Advance Directives Information Provided: No Do you have a plan to hurt others: No Plan Ebola Risk: Travel/Contact With Anyone From Affected Area/s: No Has Patient Experienced Ebola Symptoms: No Meds Allergies Allergy/AdvReac Type Severity Reaction Status Date / Time No Known Allergies Allergy Verified 07/15/24 16:03 Active Medications: Current Medications Acetaminophen (Acetaminophen 325 Mg Tablet) 650 mg PO Q6H PRN PRN Reason: Pain, Mild 1-3,fever,headache Calcium Carbonate (Calcium Carbonate 750 Mg Tab.Chew) 750 mg PO Q4H PRN PRN Reason: Heartburn Hydromorphone HCl (Hydromorphone Hcl 0.5 Mg/0.5 Ml Syringe) 0.5 mg IVPUSH Q4H PRN; Protocol PRN Reason: Pain, Severe (Pain Scale 7-10) Clindamycin Phosphate (Cleocin) 600 mg in 50 mls @ 100 mls/hr IV Q6H ROMULO Piperacillin Sod/Tazobactam (Sod 3.375 gm/ Sodium Chloride) 50 mls @ 100 mls/hr IV Q8H ROMULO Vancomycin HCl 1,000 mg/ (Sodium Chloride) 270 mls @ 270 mls/hr IV PREOP ONE Stop: 07/16/24 04:00 Magnesium Hydroxide (Milk Of Magnesia 30 Ml Oral.Susp) 30 ml PO DAILY PRN PRN Reason: Constipation Melatonin (Melatonin 3 Mg Tablet) 6 mg PO BEDTIME PRN PRN Reason: Insomnia Ondansetron HCl (Ondansetron Hcl 4 Mg/2 Ml Vial) 4 mg IVPUSH Q8H PRN PRN Reason: Nausea and Vomiting Pharmacy Consult (Consult Rx Vancomycin Dosing) 1 each MISCELLANE DAILY PRN PRN Reason: Consult order Pharmacy Consult (Consult Rx Vancomycin Dosing) 1 each MISCELLANE DAILY PRN PRN Reason: Consult order Sodium Chloride (0.9 % Sodium Chloride Flush 3 Ml Syringe) 3 ml IVFLUSH QSHIFT [facility] Physical Exam 2 Vital Signs and Narrative: Vital Signs: Last Vital Signs Temp 98.1 F 07/15/24 22:00 Pulse 77 07/15/24 22:00 Resp 16 07/15/24 22:00 BP 112/74 07/15/24 22:00 Pulse Ox 98 07/15/24 22:00 O2 Del Method Room Air 07/15/24 22:00 BMI result Body Mass Index 22.8 Alert and orientated X3, able to give good history. Neuro: CN II-X11 intact, no deficits, visual acuity intact EYES: PERRLA, EOM intact, no periorbital edema, conjunctiva pink ENT: hearing intact, no issues with swallowing, uvula midline, lips moist, nares patent no epistaxis Cardiac: S1 S2 RRR, no murmur, no JVD Pulmonary: lungs clear to auscultation B Abdominal: BS active in all 4 quadrants, no guarding, tenderness, rebounding MSK: strength 5/5 upper and lower right extremities : no CVA tenderness no bladder distension Extremities: Left knee swollen, warm to the touch, with surgical pen markings above and below left knee indicating cellulitis. Pt has limited range of motion in the affected knee, mostly with flexion. PT and DP pulses palpable +2. There is no evidence of dusky, bluish or discolored skin in the affected knee or above and below the site. There are no blisters present as well. Psych: mood stable, judgement and insight good Results Labs 07/16/24 04:58 07/16/24 04:58 Labs: Laboratory Results - last 24 hr 07/15/24 07/15/24 16:30 16:31 MCV 86.0 MCH 28.7 MCHC 33.4 RDW 14.2 Plt Count 219 MPV 9.8 Immature Gran % (Auto) 0.1 Neut % (Auto) 66.6 Lymph % (Auto) 21.5 [place] % (Auto) 9.7 Eos % (Auto) 1.6 Baso % (Auto) 0.5 Lymph # (Auto) 1.6 [place] # (Auto) 0.7 Eos # (Auto) 0.1 Baso # (Auto) 0.0 Abs Immat Gran (auto) 0.01 Absolute Neuts (auto) 4.9 Absolute Nucleated RBC 0.000 Nucleated RBC % (auto) 0.0 Smear Tech's Comments VERIFIED ESR 23 H Anion Gap 10 L Estim Creat Clear Calc 99.3 Estimated GFR > 60 Random Glucose 92 Calcium 9.1 Total Bilirubin 1.3 H Direct Bilirubin 0.4 AST 17 ALT 14 Alkaline Phosphatase 54 C-Reactive Protein 5.36 H Total Protein 7.6 Albumin 4.3 Imaging Radiologist's Impressions: Impressions Knee X-Ray 07/15/24 16:03 IMPRESSION: 1. No acute bony abnormalities. 2. Numerous foci of subcutaneous gas seen in the distal thigh both medially and posteriorly. Electronically signed by: Rajan Umana MD 07/15/2024 04:28 PM EDT RP L KNEE CT Impression: 1. No acute fracture or dislocation. 2. Abnormal fluid and soft tissue gas is predominately medial, proximal, and dorsal to the knee. 3. Mild venous extravasation of the contrast. No arterial injury defined by [address] Assessment and Plan (1) Cellulitis: Qualifiers: Laterality: left Site of cellulitis: extremity Site of cellulitis of extremity: lower extremity Qualified Code(s): L03.116 - Cellulitis of left lower limb Status: Acute (2) Puncture wound of left knee without foreign body: Qualifiers: Encounter type: initial encounter Qualified Code(s): S81.032A - Puncture wound without foreign body, left knee, initial encounter Status: Acute Plan Patient is a 28-year-old male with no significant medical history taking creatine for weightlifting presents with traumatic puncture wound of the left knee secondary to a skiing accident that occurred on [place]12/2024 at a [place] resort in [place]. Patient did not seek emergent intervention but did see his primary care physician on SundayJuly 15 and was referred to the emergency department. Patient being admitted for cellulitis with gas and fluid accumulation in the medial and proximal areas of the left knee status post puncture injury. 1. Cellulitis of left knee with CT indication of gas and fluid formation Patient does not have evidence currently of necrotizing fasciitis. Broad-spectrum antibiotics including vancomycin, Zosyn and clindamycin have been initiated after review with hospitalist attending Dr. Xiao. Infectious Disease and General surgery have been consulted. Patient initially did not understand the severity of the injury but education provided and patient understands why he needs to be admitted to the hospital. Patient is concerned about missing work and is inquiring about length of stay. Blood cultures x2 pending. Creatinine kinase mildly elevated. No leukocytosis noted. Patient requesting Tylenol only for pain. Patient denies any pain at rest and reports 3/10 pain with movement. Patient is currently non-weightbearing on left leg. 2. Puncture wound of left knee with foreign body. Patient's left knee was punctured with a tree branch status post a ski injury that occurred on SundayJuly 12. Patient did not seek emergent intervention and was eventually seen by his primary care physician on July 15 Patient did remove the tree branch at the scene of the injury. Patient did not have excessive bleeding. Upon return to patient's [facility] patient treated with cleansing using tap water and topical antibiotic ointment. Patient did receive tetanus shot in the emergency department. CT scan in x-ray of the knee were completed. No foreign body is present. As above patient will be seen by Infectious Disease and General surgery for further evaluation Patient will continue IV antibiotics for broad-spectrum coverage. Patient requires hospital admission for broad-spectrum IV antibiotics status post puncture wound to the left knee with evidence of cellulitis but no necrotizing fasciitis at this time. Patient requires consultation with Infectious Disease and General surgery while in inpatient. Patient does not currently take any prescription medications. Medication reconciliation not completed and not required. Total time managing care of this patient today: 40 minutes. Quality Stroke Does the patient have a stroke diagnosis?: No VTE Prior VTE?: No VTE Risk Level:: Medical - moderate - high VTE Device Contraindication: Treatment Not Tolerated VTE Drug Contraindication: Treatment Not Indicated
[2024-07-16] MEDS: Clindamycin Phosphate/D5W 600 MG/50 ML PIGGYBACK 100 MG IV ×3 (03:32→20:01)
[2024-07-16] MEDS: vancomycin HCL 1,500 MG in 0.9 % Sodium Chloride 500 ML 333.33 MG IV (04:14)
[2024-07-16 05:07] LABS: MANUAL DIFF FLAG NO
[2024-07-16 05:09] LABS: Basophils Percent Auto 0.5 % (0-2); Eosinophils Absolute Auto 0.1 X10*3/uL (0.0-0.4); Eosinophils Percent Auto 1.8 % (0-4); Hemoglobin 13.6 g/dl (14.0-18.0); Imm Gran Abs Auto 0.01 X10*3/uL (0.00-0.03); Imm Gran Pct Auto 0.2 % (0.0-0.4); Lymphocytes Absolute Auto 1.7 X10*3/uL (1.2-4.9); Lymphocytes Percent Auto 27.2 % (20-40); Mean Corpuscular HGB Conc 33.2 g/dl (31.0-36.0); Mean Corpuscular Hemoglobin 28.5 pg (27.0-33.0); Mean Platelet Volume 9.7 fL (9.4-12.4); Monocytes Absolute Auto 0.5 X10*3/uL (0.1-1.2); Monocytes Percent Auto 8.6 % (2-11); Neutrophils Absolute Auto 3.9 x10*3/uL (2.0-8.3); Neutrophils Percent Auto 61.7 % (45-73); Platelet Count 237 X10*3/uL (160-400); Red Blood Count 4.77 X10*6/uL (4.60-5.80); White Blood Count 6.3 X10*3/uL (4.8-10.8)
[2024-07-16 05:21] LABS: Anion Gap 11 (12-20); Blood Urea Nitrogen 14 mg/dL (9-16); Calcium 8.9 mg/dL (8.4-10.2); Carbon Dioxide 25 mmol/L (22-29); Chloride 107 mmol/L (96-108); Creatinine Clr Calc Pharmacy 132.9; Estimated Glomerular Filt Rate > 60; Glucose Random 93 mg/dL (60-115); Potassium 3.6 mmol/L (3.3-5.1); Sodium 139 mmol/L (135-145)
[2024-07-16 05:22] LABS: Lactic Acid 0.8 mmol/L (0.5-2.0)
[2024-07-16 05:38] VITALS: BP 117/78; PULSE 88; RESP 16; TEMP 36.7; O2SAT 99
--- NOTE | 2024-07-16 06:12 | PHA.PROG ---
Admission Date/Time: July 16, 2024 02:49 Indication: Bone and Joint Weight in k.957 kg Adjusted body weight in Kg: Rainbow body weight in Kg: Obesity Dosing Indication % IBW: Serum Creatinine - Last 168 Hours 07/15/24 07/16/24 16:30 04:58 Creatinine 0.99 0.74 Estimated CrCl and GFR - Last 168 Hours 07/15/24 07/16/24 16:30 04:58 Estim Creat Clear Calc 99.3 132.9 Estimated GFR > 60 > 60 Vancomycin Loading Dose: 1500mg Current Vancomycin Dosing Regimen: 1250mg Q12H Vancomycin Monitoring using AUC goal of 400 - 600 range with trough as surrogate marker: 508 mg/L Date and Time for next Vancomycin Level to be drawn: 07/17/24 @ 1500 Pharmacist Comments on Vancomycin Plan: Vancomycin dosing will take advantage of [employer] as a clinical decision support tool that uses Bayesian modeling to calculate individual patient's pharmacokinetic parameters and forecast the patient's drug concentration time course with the target goal AUC 24 range of 400 - 600 mg/L/hr.
--- NOTE | 2024-07-16 08:03 | PM.CNGS ---
History of Present Illness Consult details Consult date: 07/16/24 Narrative: 28-year-old male puncture injury of the left leg. He said that he was skiing in [place] last Sunday, July 12, 2024 when he fell on branches. He suffered a puncture wound on the medial aspect of his left leg near the knee at that time. He said he did note some oozing of blood then. He denied any head trauma He was able to drive home. He did state that whenever he moves, he continued to have pain in the area. He noticed redness as well. He was seen by his primary care physician yesterday and was told to go to the ER. He admits to pain on the area. He denies any fever or chills. He says he is in good health overall. Review of Systems Constitutional: Constitutional: Denies chills and Denies fever(s) Cardiovascular: Cardiovascular: Denies chest pain, Denies dyspnea and Denies dyspnea on exertion Respiratory: Respiratory: Denies cough, Denies dyspnea and Denies dyspnea on exertion Gastrointestinal: Gastrointestinal: Denies hematochezia and Denies change in bowel habits Genitourinary: Genitourinary: Denies hematuria and Denies difficulty urinating Musculoskeletal: Musculoskeletal: Denies back pain and Denies limited range of motion Neurologic: Denies focal weakness and Denies convulsions Psychiatric: Psychiatric: Denies depression and Denies mood swings [facility] Social History Social History Household Members: None [facility] Alcohol intake: current Alcohol intake frequency: holidays/special occasions only Patient Tobacco Use Status: Never used Tobacco service: No Travel History Ebola Risk: Travel/Contact With Anyone From Affected Area/s: No Has Patient Experienced Ebola Symptoms: No Meds Allergies Allergy/AdvReac Type Severity Reaction Status Date / Time No Known Allergies Allergy Verified 07/15/24 16:03 Active Medications: Current Medications Acetaminophen (Acetaminophen 325 Mg Tablet) 650 mg PO Q6H PRN PRN Reason: Pain, Mild 1-3,fever,headache Calcium Carbonate (Calcium Carbonate 750 Mg Tab.Chew) 750 mg PO Q4H PRN PRN Reason: Heartburn Clindamycin Phosphate (Cleocin) 600 mg in 50 mls @ 100 mls/hr IV Q6H ROMULO Last Infusion: 07/16/24 04:09 Dose: Infused Piperacillin Sod/Tazobactam (Sod 3.375 gm/ Sodium Chloride) 50 mls @ 100 mls/hr IV Q8H ROMULO Vancomycin HCl 1,250 mg/ (Sodium Chloride) 250 mls @ 166.667 mls/hr IV Q12H ROMULO Magnesium Hydroxide (Milk Of Magnesia 30 Ml Oral.Susp) 30 ml PO DAILY PRN PRN Reason: Constipation Melatonin (Melatonin 3 Mg Tablet) 6 mg PO BEDTIME PRN PRN Reason: Insomnia Ondansetron HCl (Ondansetron Hcl 4 Mg/2 Ml Vial) 4 mg IVPUSH Q8H PRN PRN Reason: Nausea and Vomiting Pharmacy Consult (Consult Rx Vancomycin Dosing) 1 each MISCELLANE DAILY PRN PRN Reason: Consult order Sodium Chloride (0.9 % Sodium Chloride Flush 3 Ml Syringe) 3 ml IVFLUSH QSHIFT [facility] Physical Exam Vital Signs: Vital Signs: Last Vital Signs Temp 98.0 F 07/16/24 05:38 Pulse 88 07/16/24 05:38 Resp 16 07/16/24 05:38 BP 117/78 07/16/24 05:38 Pulse Ox 99 07/16/24 05:38 O2 Del Method Room Air 07/16/24 05:38 BMI result Body Mass Index 22.8 Const: General: comfortable and no acute distress Orientation/consciousness: patient oriented x3 Neck: Neck: Yes no lymphadenopathy Resp: Auscultation: clear to auscultation bilaterally Cardio: Rhythm: regular rhythm GI: Palpation (GI): Soft to palpation, nontender and no guarding Neuro: General: patient oriented x3 Extrem: Other: Puncture wound, about 1 0.5 meters medial aspect of the distal thigh adjacent to the left knee, no bleeding, surrounding cellulitis although this seems to have improved based on previous markings Results Labs 07/16/24 04:58 07/17/24 05:15 Labs: Abnormal lab results 07/15/24 07/15/24 07/16/24 Range/Units 16:30 16:31 04:58 Hgb 13.6 L (14.0-18.0) g/dl Hct 41.0 L (42.0-52.0) % ESR 23 H (0-15) MM/HR Anion Gap 10 L 11 L (12-20) BUN 19 H (9-16) mg/dL Total Bilirubin 1.3 H (0.0-1.0) mg/dL Total Creatine Kinase 204 H (38-174) U/L C-Reactive Protein 5.36 H (< or = 0.50) mg/dL Short CBC 07/15/24 07/16/24 Range/Units 16:31 04:58 WBC 7.3 6.3 (4.8-10.8) X10*3/uL Hgb 14.2 13.6 L (14.0-18.0) g/dl Hct 42.5 41.0 L (42.0-52.0) % Plt Count 219 237 (160-400) X10*3/uL BMP 07/15/24 07/16/24 16:30 04:58 Sodium 141 139 Potassium 3.9 3.6 Chloride 108 107 Carbon Dioxide 27 25 BUN 19 H 14 Creatinine 0.99 0.74 Calcium 9.1 8.9 Cardiac Enzymes 07/15/24 Range/Units 16:30 Total Creatine Kinase 204 H (38-174) U/L Liver Function 07/15/24 Range/Units 16:30 Total Bilirubin 1.3 H (0.0-1.0) mg/dL Direct Bilirubin 0.4 (0.0-0.5) mg/dL AST 17 (5-37) U/L ALT 14 (0-40) U/L Alkaline Phosphatase 54 (39-117) U/L Albumin 4.3 (3.5-5.0) g/dL All other labs normal. Imaging Additional studies: Laboratory Results WBC 6.3 X10*3/uL (4.8-10.8) 07/16/24 04:58 RBC 4.77 X10*6/uL (4.60-5.80) 07/16/24 04:58 Hgb 13.6 g/dl (14.0-18.0) L 07/16/24 04:58 Hct 41.0 % (42.0-52.0) L 07/16/24 04:58 MCV 86.0 fL (80.0-98.0) 07/16/24 04:58 MCH 28.5 pg (27.0-33.0) 07/16/24 04:58 MCHC 33.2 g/dl (31.0-36.0) 07/16/24 04:58 RDW 14.0 % (11.0-16.0) 07/16/24 04:58 Plt Count 237 X10*3/uL (160-400) 07/16/24 04:58 MPV 9.7 fL (9.4-12.4) 07/16/24 04:58 Immature Gran % (Auto) 0.2 % (0.0-0.4) 07/16/24 04:58 Neut % (Auto) 61.7 % (45-73) 07/16/24 04:58 Lymph % (Auto) 27.2 % (20-40) 07/16/24 04:58 [place] % (Auto) 8.6 % (2-11) 07/16/24 04:58 Eos % (Auto) 1.8 % (0-4) 07/16/24 04:58 Baso % (Auto) 0.5 % (0-2) 07/16/24 04:58 Lymph # (Auto) 1.7 X10*3/uL (1.2-4.9) 07/16/24 04:58 [place] # (Auto) 0.5 X10*3/uL (0.1-1.2) 07/16/24 04:58 Eos # (Auto) 0.1 X10*3/uL (0.0-0.4) 07/16/24 04:58 Baso # (Auto) 0.0 X10*3/uL (0.0-0.2) 07/16/24 04:58 Abs Immat Gran (auto) 0.01 X10*3/uL (0.00-0.03) 07/16/24 04:58 Absolute Neuts (auto) 3.9 x10*3/uL (2.0-8.3) 07/16/24 04:58 Absolute Nucleated RBC 0.000 X10*3/uL (0.0-0.012) 07/16/24 04:58 Nucleated RBC % (auto) 0.0 /100WBC (0.0-0.2) 07/16/24 04:58 Smear Tech's Comments VERIFIED 07/15/24 16:31 ESR 23 MM/HR (0-15) H 07/15/24 16:31 Sodium 139 mmol/L (135-145) 07/16/24 04:58 Potassium 3.6 mmol/L (3.3-5.1) 07/16/24 04:58 Chloride 107 mmol/L (96-108) 07/16/24 04:58 Carbon Dioxide 25 mmol/L (22-29) 07/16/24 04:58 Anion Gap 11 (12-20) L 07/16/24 04:58 BUN 14 mg/dL (9-16) 07/16/24 04:58 Creatinine 0.74 mg/dL (0.5-1.4) 07/16/24 04:58 Estim Creat Clear Calc 132.9 07/16/24 04:58 Estimated GFR > 60 07/16/24 04:58 Random Glucose 93 mg/dL (60-115) 07/16/24 04:58 Lactic Acid 0.8 mmol/L (0.5-2.0) 07/16/24 04:58 Calcium 8.9 mg/dL (8.4-10.2) 07/16/24 04:58 Total Bilirubin 1.3 mg/dL (0.0-1.0) H 07/15/24 16:30 Direct Bilirubin 0.4 mg/dL (0.0-0.5) 07/15/24 16:30 AST 17 U/L (5-37) 07/15/24 16:30 ALT 14 U/L (0-40) 07/15/24 16:30 Alkaline Phosphatase 54 U/L (39-117) 07/15/24 16:30 Total Creatine Kinase 204 U/L (38-174) H 07/15/24 16:30 C-Reactive Protein 5.36 mg/dL (< or = 0.50) H 07/15/24 16:30 Total Protein 7.6 g/dL (6.5-8.0) 07/15/24 16:30 Albumin 4.3 g/dL (3.5-5.0) 07/15/24 16:30 Impressions Knee X-Ray 07/15/24 16:03 IMPRESSION: 1. No acute bony abnormalities. 2. Numerous foci of subcutaneous gas seen in the distal thigh both medially and posteriorly. Electronically signed by: Rajan Umana MD 07/15/2024 04:28 PM EDT RP Assessment and Plan (1) Puncture wound of left knee without foreign body: Qualifiers: Encounter type: initial encounter Qualified Code(s): S81.032A - Puncture wound without foreign body, left knee, initial encounter Status: Acute He has a puncture wound on the distal thigh near the left knee as described above. There was note of cellulitic changes. This appears to have improved based on previous markings. I have reviewed his CAT scan. There is no obvious vascular injury. Subcutaneous gas described appears to be because of the open wound itself. I would continue with IV antibiotics for now. I have changed his dressings as well. We will monitor the leg for any persistent cellulitis or worsening infection. He understands the plan. He looks well clinically. Procedures Date of Service Date of Service: 07/17/24
[2024-07-16] MEDS: Piperacillin Sodium/Tazobactam 3.375 GM in 0.9 % Sodium Chloride 50 ML IV ×3 (08:07→23:05)
[2024-07-16] MEDS: 0.9 % Sodium Chloride Flush 3 ML SYRINGE IVFLUSH ×2 (08:13→20:12)
--- NOTE | 2024-07-16 08:48 | PHA.MEDREC ---
Addendum entered by Damien Pennington RPh 07/16/24 08:58: Med rec was reviewed by Yumiko. Original Note: Pharmacy Consult ? Medication Reconciliation Pharmacy has completed the medication reconciliation. Patient states he is not taking any medications.
[2024-07-16] MEDS: Clindamycin Phosphate/D5W 600 MG/50 ML PIGGYBACK 50 MG IV (09:36)
--- NOTE | 2024-07-16 11:28 | MHC.CM.PN ---
Pt is independent, his car is in lot, PCP confirmed: Dr. Janelle Taveras. DCP: home, self care. CM to follow for DC needs.
[2024-07-16 14:15] VITALS: BP 110/67; PULSE 81; RESP 16; TEMP 36.6; O2SAT 98
--- NOTE | 2024-07-16 14:42 | PM.EVENT ---
Event Note Date of Service: 07/16/24 Event Note: This patient is seen and examined . Patient was admitted after leg injury from ski Physical exam and assessment and plan coordinated in APCs note, Agree with the plan in addition: CPK improved Continue IV antibiotics, surgery evaluation noted-recommended to continue conservative management with IV antibiotic currently. Blood culture pending Time Spent With Patient Time: Total time managing care of this patient today ____ minutes.
[2024-07-16 15:36] VITALS: BP 117/70; PULSE 79; RESP 15; O2SAT 97
[2024-07-16 17:04] VITALS: BP 114/56; PULSE 79; RESP 20; TEMP 36.9; O2SAT 96
[2024-07-16 17:05] VITALS: BMI 22.8
[2024-07-16] MEDS: vancomycin HCL 1,250 MG in 0.9 % Sodium Chloride 250 ML 166.67 MG IV (17:19)
[2024-07-16 18:59] VITALS: BP 115/62; PULSE 81; RESP 18; TEMP 37.4; O2SAT 98
[2024-07-16 22:55] VITALS: BP 110/70; PULSE 67; RESP 18; TEMP 36.6; O2SAT 100
--- NOTE | 2024-07-16 23:51 | W.PM.IDCN ---
History of Present Illness Data of Consult Service Date: 07/16/24 Requesting physician: Everette Taveras Primary Care Provider: Janelle Taveras MD [facility] Reason for consult: left knee redness He had stick puncture knee area while skiing 07/12. He has no fever or chills. Area is painful with spreading redness. CT scan concern over tissue damage Review of Systems Review of Systems: Yes all other systems are reviewed and are negative [facility] Family History Family history: reviewed and not pertinent Social History Social History Household Members: [facility] Alcohol intake: current Alcohol intake frequency: holidays/special occasions only Patient Tobacco Use Status: Never used Tobacco service: No Travel History Ebola Risk: Travel/Contact With Anyone From Affected Area/s: No Has Patient Experienced Ebola Symptoms: No Meds Allergies Allergy/AdvReac Type Severity Reaction Status Date / Time No Known Allergies Allergy Verified 07/15/24 16:03 Active Medications: Current Medications Acetaminophen (Acetaminophen 325 Mg Tablet) 650 mg PO Q6H PRN PRN Reason: Pain, Mild 1-3,fever,headache Calcium Carbonate (Calcium Carbonate 750 Mg Tab.Chew) 750 mg PO Q4H PRN PRN Reason: Heartburn Clindamycin Phosphate (Cleocin) 600 mg in 50 mls @ 100 mls/hr IV Q6H [facility] Last Infusion: 07/16/24 23:05 Dose: Infused Piperacillin Sod/Tazobactam (Sod 3.375 gm/ Sodium Chloride) 50 mls @ 100 mls/hr IV Q8H [facility] Last Admin: 07/16/24 23:05 Dose: 100 mls/hr Vancomycin HCl 1,250 mg/ (Sodium Chloride) 250 mls @ 166.667 mls/hr IV Q12H [facility] Last Infusion: 07/16/24 20:12 Dose: Infused Magnesium Hydroxide (Milk Of Magnesia 30 Ml Oral.Susp) 30 ml PO DAILY PRN PRN Reason: Constipation Melatonin (Melatonin 3 Mg Tablet) 6 mg PO BEDTIME PRN PRN Reason: Insomnia Ondansetron HCl (Ondansetron Hcl 4 Mg/2 Ml Vial) 4 mg IVPUSH Q8H PRN PRN Reason: Nausea and Vomiting Pharmacy Consult (Consult Rx Vancomycin Dosing) 1 each MISCELLANE DAILY PRN PRN Reason: Consult order Sodium Chloride (0.9 % Sodium Chloride Flush 3 Ml Syringe) 3 ml IVFLUSH QSHIFT [facility] Last Admin: 07/16/24 20:12 Dose: 3 ml Home Medications ?Medication ?Instructions ?Recorded ?Confirmed ?Last Taken ?Type No Known Home Meds 07/16/24 07/16/24 Unknown History Physical Exam Vital Signs: Vital Signs: Last Vital Signs Temp 97.9 F 07/16/24 22:55 Pulse 67 07/16/24 22:55 Resp 18 07/16/24 22:55 BP 110/70 07/16/24 22:55 Pulse Ox 100 07/16/24 22:55 O2 Del Method Room Air 07/16/24 22:55 BMI result Body Mass Index 22.8 Const: General: cooperative HEENT: Head: Yes normal to inspection Face and sinus: Yes normal facial exam Mouth: Normal oral and palatal mucosa present Teeth and gingiva: dentition normal Eyes: General: appearance normal, both eyes and all related structures Pupils: Equal, round and reactive pupils present Resp: Effort & Inspection: normal respiratory effort Cardio: Rate: regular rate Rhythm: regular rhythm GI: Palpation (GI): Soft to palpation and nontender : General: Yes no CVA tenderness Back/Spine/Pelvis: Back: no CVA tenderness Skin: Other: mild redness anterior leg Neuro: General: moves all extremities Cranial nerves: Yes Equal, round and reactive pupils present Extrem: General: Yes normal to inspection Psych: Appearance: grossly normal Results Labs 07/16/24 04:58 07/16/24 04:58 Labs: Short CBC 07/16/24 Range/Units 04:58 WBC 6.3 (4.8-10.8) X10*3/uL Hgb 13.6 L (14.0-18.0) g/dl Hct 41.0 L (42.0-52.0) % Plt Count 237 (160-400) X10*3/uL BMP 07/16/24 04:58 Sodium 139 Potassium 3.6 Chloride 107 Carbon Dioxide 25 BUN 14 Creatinine 0.74 Calcium 8.9 Cardiac Enzymes 07/15/24 07/16/24 Range/Units 16:30 04:58 Total Creatine Kinase 204 H 170 (38-174) U/L Assessment and Plan (1) Puncture wound of left knee without foreign body: Qualifiers: Encounter type: initial encounter Qualified Code(s): S81.032A - Puncture wound without foreign body, left knee, initial encounter Status: Acute (2) Cellulitis: Qualifiers: Laterality: left Site of cellulitis: extremity Site of cellulitis of extremity: lower extremity Qualified Code(s): L03.116 - Cellulitis of left lower limb Status: Acute Plan He is nontoxic and doubt necrotizing fasciitis. He has possible gram negative and gram positive organisms and less likely fungal from exposure. Would continue Zosyn and Vancomycin possible transfer to Augmentin and Doxycycline when better. General Surgery eval ?deep infection.
[2024-07-17 03:03] VITALS: BP 120/72; PULSE 65; RESP 18; TEMP 36.8; O2SAT 98
[2024-07-17] MEDS: Clindamycin Phosphate/D5W 600 MG/50 ML PIGGYBACK 100 MG IV ×3 (03:29→14:59)
--- NOTE | 2024-07-17 05:00 | ECG_ITS ---
Test Reason : baseline Blood Pressure : */* mmHG Vent. Rate : 70 BPM Atrial Rate : 70 BPM P-R Int : 190 ms QRS Dur : 94 ms QT Int : 378 ms P-R-T Axes : 68 72 45 degrees QTcB Int : 408 ms Normal sinus rhythm ST elevation, consider early repolarization Borderline ECG When compared with ECG of 16-Jul-2024 05:17, Nonspecific T wave abnormality no longer evident in Lateral leads Referred By: Sara Seals Electronically Signed By: SONIA SINCLAIR
[2024-07-17] MEDS: vancomycin HCL 1,250 MG in 0.9 % Sodium Chloride 250 ML 166.67 MG IV (05:41)
[2024-07-17 06:23] LABS: Creatinine Clr Calc Pharmacy 129.4; Estimated Glomerular Filt Rate > 60
[2024-07-17] MEDS: Piperacillin Sodium/Tazobactam 3.375 GM in 0.9 % Sodium Chloride 50 ML IV (07:19)
[2024-07-17 08:00] VITALS: BP 101/61; PULSE 62; RESP 20; TEMP 36.4; O2SAT 98
--- NOTE | 2024-07-17 09:17 | PM.PNGS ---
Subjective Subjective Date of Service: 07/17/24 Interval history: Feels better Less pain No other complaints Physical Exam Vital Signs: Vital Signs: Last Vital Signs Temp 97.5 F 07/17/24 08:00 Pulse 62 07/17/24 08:00 Resp 20 07/17/24 08:00 BP 101/61 07/17/24 08:00 Pulse Ox 98 07/17/24 08:00 O2 Del Method Room Air 07/17/24 08:00 BMI result Body Mass Index 22.8 Const: General: comfortable and no acute distress Resp: Effort & Inspection: normal respiratory effort Cardio: Rate: regular rate Extrem: Other: Area of the puncture wound much improved, cellulitis seems resolved, no discharge, no evidence of worsening infection Objective Data Active Medications Acetaminophen (Acetaminophen 325 Mg Tablet) 650 mg PO Q6H PRN PRN Reason: Pain, Mild 1-3,fever,headache Calcium Carbonate (Calcium Carbonate 750 Mg Tab.Chew) 750 mg PO Q4H PRN PRN Reason: Heartburn Clindamycin Phosphate (Cleocin) 600 mg in 50 mls @ 100 mls/hr IV Q6H [facility] Last Admin: 07/17/24 08:46 Dose: 100 mls/hr Documented By: CARLOS Piperacillin Sod/Tazobactam (Sod 3.375 gm/ Sodium Chloride) 50 mls @ 100 mls/hr IV Q8H [facility] Last Infusion: 07/17/24 08:04 Dose: Infused Documented By: CARLOS Vancomycin HCl 1,250 mg/ (Sodium Chloride) 250 mls @ 166.667 mls/hr IV Q12H [facility] Last Infusion: 07/17/24 07:19 Dose: Infused Documented By: MELISSA Magnesium Hydroxide (Milk Of Magnesia 30 Ml Oral.Susp) 30 ml PO DAILY PRN PRN Reason: Constipation Melatonin (Melatonin 3 Mg Tablet) 6 mg PO BEDTIME PRN PRN Reason: Insomnia Ondansetron HCl (Ondansetron Hcl 4 Mg/2 Ml Vial) 4 mg IVPUSH Q8H PRN PRN Reason: Nausea and Vomiting Pharmacy Consult (Consult Rx Vancomycin Dosing) 1 each MISCELLANE DAILY PRN PRN Reason: Consult order Sodium Chloride (0.9 % Sodium Chloride Flush 3 Ml Syringe) 3 ml IVFLUSH QSHIFT [facility] Last Admin: 07/17/24 08:04 Dose: Not Given Documented By: CARLOS Non-Admin Reason: IV Running Labs 07/16/24 04:58 07/17/24 05:15 Labs: Laboratory Results - last 24 hr 07/16/24 07/17/24 04:58 05:15 Estim Creat Clear Calc 129.4 Estimated GFR > 60 Total Creatine Kinase 170 Microbiology Microbiology Results: Microbiology 07/16/24 04:58 Blood Culture - Preliminary Blood - Venous No growth after 24 hours. 07/16/24 04:58 Blood Culture - Preliminary Blood - Venous No growth after 24 hours. Procedures Date of Service Date of Service: 07/17/24 Progress Note: A&P Assessment and plan (1) Cellulitis: Status: Acute Assessment and Plan: Cellulitis seems resolved He feels much better No fever Okay to discharge on oral antibiotics Band-Aid applied Okay to shower Time Spent With Patient Time: Total time managing care of this patient today ____ minutes. Quality Stroke Does the patient have a stroke diagnosis?: No VTE Prior VTE?: No VTE Risk Level:: Medical - moderate - high VTE Device Contraindication: Treatment Not Tolerated VTE Drug Contraindication: Treatment Not Indicated
[2024-07-17 12:00] VITALS: BP 101/70; PULSE 79; RESP 20; TEMP 36.8; O2SAT 99
[2024-07-17] MEDS: Doxycycline Monohydrate 100 MG CAPSULE PO (14:59)
[2024-07-17] MEDS: Amoxicillin/Potassium Clav 875 MG TABLET PO (14:59)
--- NOTE | 2024-07-17 15:22 | P.DS_ITS ---
DS: Providers Provider Date of Service: 07/17/24 Date of admission: 07/16/24 02:49 Date of discharge: 07/17/24 Primary care physician: Janelle Taveras MD Consults: 07/16/24 03:03 Consult to General Surgery Routine Consulting Provider: [facility] General Surgeons Reason for consultation: puncutre wound L knee, gas present no nec fasc on CT scan Has provider been notified: No Consult to Infectious Diseases Routine Consulting Provider: [facility] Infectious Disease Center Reason for consultation: puncture wound, gas present, cellulits Has provider been notified: No 07/16/24 17:41 Consult to Wound Care Routine Reason for consultation: left lower leg wound Has provider been notified: Yes Attending physician on discharge: Everette Taveras Discharging clinician: Everette Taveras DS: Diagnosis Discharge Diagnosis (1) Cellulitis: Status: Acute DS: Summary Hospital Course Hospital Course: HPI:28-year-old male with no significant past medical history uses creatine for weightlifting presents to the emergency department after seeing his primary care on SundayJuly 15 status post a skiing injury that took place on [place] a [place] in [place]. Patient states he was on his last ski run for the day and was skiing with his friends in an area full of trees and branches. Patient had tripped over 1 of the branches and somehow as the branch broke, the sharp end went through patient's left knee medially. Patient fell to the ground, did not hit the head and experienced inability to move the left leg for about 5 seconds. Patient had significant pain. Patient felt oozing down his left leg as well. Patient did pull out the branch almost immediately and the oozing increased. Patient's friends realized the patient was no longer with them and returned back to the scene. Patient was alert and orientated, did not experience any loss of consciousness or excessive bleeding. Patient states he was able to make it back to the [place] entrance by not using the left leg and relied on the right leg to ski back to the base. Patient then returned to their Airbnb. Patient's friend provided topical antibiotic ointment. Patient initially cleanse the site with tap water and then applied the antibiotic ointment and covered with a sterile pad. Patient denied any rash, chills, fever, nausea, vomiting status post the injury. Patient then traveled home that evening and elevated the left leg. Pain in left leg worsened on Sunday but patient decided against seeking treatment as the pain slowly improved. Sunday was relatively the same. Patient did note some redness around the effected area. Pain was actually improving but still present. Patient was not able to bear weight completely on the left leg. Patient had called his primary care physician and got an appointment for SundayJuly 15 and was seen. Patient was advised to seek intervention in the local emergency department and arrived at [facility]. Pt was able to drive himself to the ED. Patient diagnosed with cellulitis which was marked with a surgical pen for areas both above and below left knee. . Knee was warm to the touch. Patient had limited range of motion mostly with flexion. Pain was reported a 3/10 with movement only otherwise patient had no pain at rest. CT scan was completed: Impression: 1. No acute fracture or dislocation. 2. Abnormal fluid and soft tissue gas is predominately medial, proximal, and dorsal to the knee. 3. Mild venous extravasation of the contrast. No arterial injury defined by [address] Also x-ray of the left knee noted: FINDINGS: No fracture, dislocation, or suspicious bone lesion. Normal alignment. Preserved joint spaces. No evidence of joint effusion. There are numerous foci of subcutaneous gas seen in the distal thigh both medially and posteriorly. No radiopaque foreign body evident. Due to the presence of gas medially, proximal and dorsal to L knee, patient required admission and was started on vancomycin IV, Zosyn IV and clindamycin IV. Infectious Disease and General surgery have been consulted. Patient continues to deny pain at rest in the affected knee. Patient did receive a tetanus shot in the emergency department. Patient is tolerating antibiotics so far without any adverse or allergic response. Patient did not initially comprehend the severity of the puncture wound. Patient educated on the risk for necrotizing fasciitis or worsening internal infection and needs to be on broad-spectrum IV antibiotics with consultation for surgery and Infectious Disease prior to being discharged. Patient is concerned about missing work and is questioning how long he will remain in the hospital. Hospital course: 28-year-old male with no significant medical history taking creatine for weightlifting presents with traumatic puncture wound of the left knee secondary to a skiing accident that occurred on [place]12/2024 at a [place] resort in [place]. Patient did not seek emergent intervention but did see his primary care physician on SundayJuly 15 and was referred to the emergency department-ct scan reviewed by surgery:There is no obvious vascular injury. Subcutaneous gas described appears to be because of the open wound itself: Patient was started on broad-spectrum IV antibiotics,, blood cultures sent. With the above management patient has cellulitis seems to be improved, is walking fine, no pain, no fever or fluctuation. Discussed with surgery and Infectious Disease: Cellulitis area seems to be improving, patient will go home with p.o. antibiotics. Follow-up outpatient with PCP. blood culture @24hrs . Plan: P.o. doxycycline 100 mg b.i.d., Augmentin 875 mg p.o. b.i.d.-for 10 days. Follow-up outpatient. Above management discussed with the patient detail length he understand and in agreement with the above plan, time spent 40 minute. Time Attestation Total time managing care of this patient today: 40 mintues. Discharge Coordination Time (in mins): 40min Quality: Safe Use of Opioids Does Pt have an Active Cancer Diagnosis on the Problem List?: No Quality: Stroke Does the patient have a stroke diagnosis?: No Physical Exam Vital Signs: Vital Signs: Last Vital Signs Temp 98.2 F 07/17/24 12:00 Pulse 79 07/17/24 12:00 Resp 20 07/17/24 12:00 BP 101/70 07/17/24 12:00 Pulse Ox 99 07/17/24 12:00 O2 Del Method Room Air 07/17/24 12:00 BMI result Body Mass Index 22.8 Appearance: Alert.? Oriented X3 cvs: rrr, [id number] . res: clear to auscultation ,no rhonchii or wheezing abd: no rebound or guarding ,nt, bs present. neuro: axo3 , nonfocal. ext:Area of the puncture wound much improved, cellulitis seems resolved, no discharge or fluctuation. , no evidence of worsening infection DS: Data Data Completed and Pending Labs on day of discharge: Laboratory Results - last 24 hr 07/17/24 05:15 Creatinine 0.76 Estim Creat Clear Calc 129.4 Estimated GFR > 60 Preliminary micro results at discharge 07/16/24 04:58 Blood Culture - Preliminary Blood - Venous No growth after 24 hours. 07/16/24 04:58 Blood Culture - Preliminary Blood - Venous No growth after 24 hours. Imaging Chest x-ray: Radiologist's impression: ITS Impressions Knee X-Ray 07/15/24 16:03 IMPRESSION: 1. No acute bony abnormalities. 2. Numerous foci of subcutaneous gas seen in the distal thigh both medially and posteriorly. Electronically signed by: Rajan Umana MD 07/15/2024 04:28 PM EDT RP Discharge Plan Discharge Anticipated Discharge Date/Time: 07/17/24 14:12 Patient Disposition: Home, Self-Care Discharge Diagnosis: leg cellulitis /injury Referrals: Janelle Taveras MD [Primary Care Provider] - 1 Week Discharge Medications: New doxycycline monohydrate 100 mg Capsule 100 mg PO Q12H Qty: 20 0RF amoxicillin-pot clavulanate 875-125 mg Tablet 1 tab PO Q12H Qty: 20 0RF Discharge Orders: Discharge Order (Routine); Ordered 07/17/24 Ordered By: Everette Taveras Diet: Advance to usual diet Activity on Discharge: As tolerated Stand Alone Forms: Patient Portal Discharge page Print Language: Ivorian Activity Restrictions/Additional Instructions: Local care of the wound as advised Antibiotic as prescribed Report to the ER if worsening of the pain or swelling Care Plan Goals: complete po augmentin /doxycycline for 10 days follow up outpatient with pcp . surgery may arrange their own appointment if needed. Health Concerns: as above. Plan of Treatment: as above. Assessment: as above. Patient Instructions: Cellulitis (DC)
--- NOTE | 2024-07-17 15:23 | MHC.CM.PN ---
Patient has been medically cleared for dc to home today, self care.
[2024-07-17 15:29] LABS: Vancomycin Random 10.1 mcg/mL (15-20)
[2024-07-17 16:00] VITALS: BP 112/68; PULSE 79; RESP 16; TEMP 36.9; O2SAT 98
--- NOTE | 2024-07-17 16:48 | HO.WOUND ---
Wound Consult: Initial 28yr old?male admitted to [facility] on 07/16/24 - See progress notes and H&P for detailed history.? Wound consult placed for Left Medial Knee Wound.? Patient agreeable to assessment and photo documentation.? Patient reports it was a punture site while skiing and a branch went into his leg. Left Medial Knee Etiology: ?Punture wound Measurements: 1.2cm x 1.3cm x 0.1cm Wound Bed: dried red scab Drainage / Odor: None Edges: ? well defined Christel wound: mild erythema with mild swelling? No Induration, Fluctuance or Warmth noted Pain: tenderness noted Goals of Treatment: ? Moist wound healing Recommendations: Left Medial Knee - Cleanse with soap and water pat dry. Apply skin prep to periwound, Cover with occlusive dressing. Change daily. Re-consult wound care Nurse for wound deterioration or wound changes.
== END 2024-07-17 17:00 | disposition home or self-care (01) | DRG 383 ==
LOC: HO.ED 07-16 02:16 → HO.EDOVER 07-16 04:38 → HO.IMC 07-16 15:20
PROVIDERS: Physician Assistant Medical; Admitting Provider Nurse Practitioner Family; Emergency Provider Internal Medicine; PCP Internal Medicine; Visit Provider Internal Medicine
DX: L03.116 Cellulitis of left lower limb (principal); S81.032A Puncture wound without foreign body, left knee, initial encounter; W26.8XXA Contact with other sharp object(s), not elsewhere classified, initial encounter; Y93.23 Activity, snow (alpine) (downhill) skiing, snowboarding, sledding, tobogganing and snow tubing
CPT/HCPCS: 36415; 73562; 73701; 80048; 80076; 80202; 82550; 82565; 83605; 85025; 85652; 86140; 87040; 90715; 93005; 99285; J0736; J2543; J3371; Q9967

== ENCOUNTER → 2024-07-15 16:03 | Outpatient (BNV) | payer OTHER, SELFPAY | PROVIDERS: PCP Internal Medicine; Visit Provider Radiology Diagnostic Radiology | DX: M25.562 Pain in left knee (principal) | CPT/HCPCS: 73562 ==

== ENCOUNTER → 2024-07-15 | Outpatient (BNV) | payer OTHER, SELFPAY | PROVIDERS: Admitting Provider Nurse Practitioner Family; Emergency Provider Internal Medicine; PCP Internal Medicine; Visit Provider Internal Medicine | DX: R94.31 Abnormal electrocardiogram [ECG] [EKG] (principal); Z13.6 Encounter for screening for cardiovascular disorders | CPT/HCPCS: 93010 ==

== ENCOUNTER 2024-07-16 02:49 | Outpatient (BNV) | payer OTHER, SELFPAY | END 2024-07-17 05:00 | PROVIDERS: Admitting Provider Nurse Practitioner Family; Emergency Provider Internal Medicine; PCP Internal Medicine; Visit Provider Internal Medicine | DX: Z13.6 Encounter for screening for cardiovascular disorders (principal) | CPT/HCPCS: 93010 ==

== ENCOUNTER → 2024-07-16 02:49 | Outpatient (BNV) | payer OTHER, SELFPAY | PROVIDERS: Admitting Provider Nurse Practitioner Family; Emergency Provider Internal Medicine; PCP Internal Medicine; Visit Provider Internal Medicine | DX: S81.032A Puncture wound without foreign body, left knee, initial encounter (principal); L03.116 Cellulitis of left lower limb | CPT/HCPCS: 99222 ==

== ENCOUNTER → 2024-07-16 02:49 | Outpatient (BNV) | payer OTHER, SELFPAY | PROVIDERS: Admitting Provider Nurse Practitioner Family; Emergency Provider Internal Medicine; PCP Internal Medicine; Visit Provider Surgery | DX: L03.116 Cellulitis of left lower limb (principal); S81.032A Puncture wound without foreign body, left knee, initial encounter | CPT/HCPCS: 99222; 99232 ==

== ENCOUNTER → 2024-07-16 02:49 | Outpatient (BNV) | payer OTHER, SELFPAY | PROVIDERS: Admitting Provider Nurse Practitioner Family; Emergency Provider Internal Medicine; PCP Internal Medicine; Visit Provider Nurse Practitioner Family | DX: L03.116 Cellulitis of left lower limb (principal) | CPT/HCPCS: 99239 ==

== ENCOUNTER → 2024-07-16 | Outpatient (BNV) | payer OTHER, SELFPAY | PROVIDERS: Emergency Provider Internal Medicine; PCP Internal Medicine; Visit Provider Radiology Neuroradiology | DX: M25.862 Other specified joint disorders, left knee (principal) | CPT/HCPCS: 73701 ==